=== PATIENT | female | born 1995 | race Two or more races ===

== ENCOUNTER 2024-05-10 21:30 | Observation (INO) | payer MEDICAID, SELFPAY ==
[2024-05-10 21:32] VITALS: BP 127/90; PULSE 134; RESP 18; TEMP 36.2; O2SAT 98; BMI 21.9
[2024-05-10 22:08] LABS: Bacteria 0 SEEN /hpf (None Seen); Mucous, Urine 0 SEEN /hpf (<or=2+); Red Blood Cells-Urine 0 SEEN /hpf (0-5); Squamous Epithelial Cells - UA 0 SEEN /hpf (5-10); White Blood Cells 0 SEEN /hpf (0-5)
[2024-05-10 22:09] LABS: Color, Urine Yellow (Yellow); Glucose, Dipstick Normal (Normal); Ketone-Dipstick Negative (Negative); Leukocyte Esterase-Dipstick Negative /ul (Negative); Nitrite-Dipstick Negative (Negative); Occult Blood-Urine Negative /ul (Negative); Protein-Dipstick Negative (Negative); Specific Gravity, Urine 1.015 (1.002-1.030); Urine Bilirubin Dipstick Negative (Negative); Urine Clarity Clear (Clear); Urine Urobilinogen Normal (Normal)
[2024-05-10 22:13] LABS: Internal QC Validated? YES +Cl - CLEAR BKGD; Pregnancy, Urine Negative Negative
[2024-05-10 23:00] VITALS: RESP 20
[2024-05-10 23:00] LABS: Amphetamine Urine VISTA NEGATIVE (<1000 ng/mL); Barbiturate Urine VISTA NEGATIVE (< 200 ng/mL); Benzodiazepine Urine VISTA NEGATIVE (< 200 ng/mL); Cocaine Urine VISTA POSITIVE (< 300 ng/mL); Ecstacy Urine VISTA NEGATIVE (< 500 ng/mL); Methadone Urine VISTA NEGATIVE (< 300 ng/mL); PCP Urine VISTA NEGATIVE (< 25 ng/mL); THC Urine VISTA NEGATIVE (< 50 ng/mL); Vista UDS pH Range 5
[2024-05-11] VITALS (9 sets, daily range): BP systolic 98–122; BP diastolic 57–85; PULSE 75–100; RESP 14–16; TEMP 36.3–37; O2SAT 95–100; BMI 21.9
[2024-05-11 00:58] LABS: Alcohol, Blood (Medical)-Serum < 3.0 mg/dL
[2024-05-11 01:01] LABS: Anion Gap 6 (5-15); BUN 11 mg/dL (7-18); BUN/Creat Ratio 16.3 RATIO (10-20); Calcium,Total 9.3 mg/dL (8.5-10.1); Chloride 106 mmol/L (98-107); Creatinine, Serum 0.68 mg/dL (0.55-1.02); EST Glomerular Filtration Rate 110 mL/min (>60); Est Glom Filt Rate - Afr Amer 133 mL/min (>60); Estimated Creatinine Clearance 119.78 ml/min; Glucose 101 mg/dL (74-106); Sodium Level 139 mmol/L (136-145)
[2024-05-11 01:10] LABS: Absolute Lymphocyte Count 3.06 X10^3/uL (0.83-4.51); Absolute Neutrophil Count 3.8 X10^3/uL (2.0-7.7); Basophil# 0.09 X10^3/uL; Basophil% 1.1 % (0-1); Eosinophils% 4.9 % (0-5); Hematocrit 40.2 % (37-47); Hemoglobin 13.9 g/dL (12.0-15.0); Lymphocyte # 3.06 X10^3/ul (0.83-4.51); Lymphocyte % 37.8 % (19-41); Mean Corp Hgb Conc 34.6 g/dL (32-36); Mean Corpuscular Hgb 28.8 pg (27.0-32.0); Mean Corpuscular Volume 83.4 fL (81-99); Mean Platelet Vol. 10.9 fl (6.2-12.0); Monocyte% 8.6 % (0-10); NRBC Flagged by Analyzer 0 % (0-5); Neutrophil # 3.84 X10^3/uL (2.7-7.7); Neutrophil % 47.5 % (47-70); Platelet Count 263 K/mm3 (150-450); RBC Distribution Width CV 12.5 % (11.6-14.6); RBC Distribution Width SD 38.2 fl (35.1-43.9); Red Blood Count 4.82 M/mm3 (4.2-5.4); White Blood Count 8.1 K/mm3 (4.4-11.0)
--- NOTE | 2024-05-11 01:20 | EX.ED.DYSGE1 ---
HPI History of Present Illness Chief Complaint: Substance Abuse Informant: patient Narrative Narrative: Patient is a 28-year-old female with history of PTSD and depression who also reports that she self medicates with cocaine and fentanyl. She states that she typically smokes the illicit drugs. She reports that she went through detox/rehab roughly a month ago and was clean for just a week or so before she began using. She states that she would typically smoke 1 to 2 mg of fentanyl per day. She states her last use of fentanyl and cocaine were 1 hour prior to arrival. She denies any homicidal or suicidal ideation but with desire for detoxification she presents for evaluation [facility] Medical History (Updated 05/11/24 @ 03:[address] Ranjith Pugh, DO) Cocaine abuse Fentanyl use disorder, mild, abuse Marijuana abuse PTSD (post-traumatic stress disorder) Depression Home Medications ?Medication ?Instructions ?Recorded ?Last Taken ?Type NK 05/11/24 Unknown History Allergy/AdvReac Type Severity Reaction Status Date / Time No Known Allergies Allergy Verified 05/10/24 21:31 Family History no significant family his Surgical History Hx of tubal ligation Hx of section Social History Smoking Status: Current every day smoker tobacco type: cigarettes ROS ROS ED Constitutional Constitutional ED: Denies chills or fever(s) Eyes Eyes: Denies blurry vision or change in vision ENT ENT ED: Denies sore throat Cardiovascular Cardiovascular: Denies chest pain, palpitations or racing heartbeat Respiratory/Chest Respiratory/Chest: Denies cough or dyspnea Gastrointestinal Gastrointestinal: Denies abdominal pain, diarrhea, nausea or vomiting Genitourinary Genitourinary ED: Denies dysuria Musculoskeletal Musculoskeletal: Denies myalgias Integumentary Denies rash Neurologic Neurologic: Denies headache(s) Psychiatric Psychiatric: Reports depression and other Details: Positive drug abuse ; Denies suicidal ideation or suicidal thoughts Hematologic/Lymphatic Hematologic/Lymphatic: Denies easy bleeding or easy bruising EXAM Physical Exam Const Vital Signs: 05/10/24 21:32 05/10/24 23:00 05/11/24 00:00 Temperature 97.1 F L Temperature Source Temporal Pulse Rate 134 H 90 Respiratory Rate 18 20 H 16 Blood Pressure 127/90 H 122/85 H Blood Pressure Mean 102 97 Pulse Ox 98 97 Oxygen Delivery Method Room Air Room Air Room Air 05/11/24 01:00 05/11/24 01:20 Temperature 98.2 F Temperature Source Pulse Rate 80 80 Respiratory Rate 16 16 Blood Pressure 116/75 116/75 Blood Pressure Mean 88 88 Pulse Ox 95 95 Oxygen Delivery Method Room Air Positive well nourished and well developed General Appearance ED: well developed; Negative for pallor HEENT HEENT Narrative: Normocephalic atraumatic No signs of infection in the posterior pharynx Eyes EOMs intact bilaterally Eyes Narrative: Pupils are pinpoint consistent with opioid use General Eye ED: Negative for scleral icterus Neck supple Neck Narrative: No nuchal rigidity or meningeal signs Resp normal respiratory effort and clear to auscultation bilaterally Cardio regular rate and regular rhythm Rate: other Other Details: Heart is regular rate and rhythm without murmurs rubs or gallops Radial and carotid pulses are equal and symmetric GI non-tender, non-distended and no masses Auscultation: hypoactive bowel sounds Palpation: soft Extremity normal to inspection Extremity Narrative: No asymmetric edema no pitting edema negative Homans' sign bilaterally Occasional track osullivan in the bilateral arms consistent with recent IV injection. No secondary findings of cellulitis or abscess no splinter hemorrhages noted Neuro oriented x3, CN's II-XII intact bilaterally and no sensory deficits noted Sensorium / Orientation: alert Motor Exam: strength 5/5 throughout Psych mental status grossly normal Psych Narrative: No homicidal or suicidal ideation Skin no rashes or lesions noted General Skin Exam: Negative for jaundice or pallor MDM MDM MDM Narrative Medical decision making narrative: Patient presented to the ER tachycardic but recently did cocaine. We informed her that we do not detox for this but based on her recurrent fentanyl use she would qualify. The patient does express desire for detox from the opioid and is agreeable to the terms of being placed in detox/rehab. In order to ensure that there was no findings of acute kidney injury electrolyte abnormality or potential infection a medical screening exam and basic blood work were obtained. Labs revealed no clinically significant findings and her exam showed no signs of secondary infection such as cellulitis or abscess and her exam did not suggest endocarditis. She was not having chest pain or shortness of breath and had low concern for cocaine induced coronary vasospasm and therefore there was no need for a EKG. as the patient is requesting detox and now is medically cleared medicine was contacted and they do agree to accept the patient for continued care History & Record Review Discussion w/independent historian: Patient Lab Data Attestation: I reviewed the patient's lab results. Labs: Laboratory Results - last 24 hr 05/10/24 05/11/24 22:00 00:37 WBC 8.1 RBC 4.82 Hgb 13.9 Hct 40.2 MCV 83.4 MCH 28.8 MCHC 34.6 RDW Std Deviation 38.2 RDW Coeff of Nikki 12.5 Plt Count 263 MPV 10.9 Immature Gran % (Auto) 0.100 Neut % (Auto) 47.5 Lymph % (Auto) 37.8 [place] % (Auto) 8.6 Eos % (Auto) 4.9 Baso % (Auto) 1.1 H Absolute Neuts (auto) 3.8 Absolute Lymphs (auto) 3.06 Nucleated RBC % 0 PT 13.2 INR 1.0 Sodium 139 Potassium 4.0 Chloride 106 Carbon Dioxide 27.0 Anion Gap 6 BUN 11 Creatinine 0.68 Estim Creat Clear Calc 119.78 Est GFR (MDRD) Af Amer 133 Est GFR (MDRD) Non-Af 110 BUN/Creatinine Ratio 16.3 Glucose 101 Calcium 9.3 Total Bilirubin 0.40 Direct Bilirubin 0.15 AST 31 ALT 52 Alkaline Phosphatase 49 Total Protein 7.8 Albumin 3.9 Globulin 3.9 Urine Color Yellow Urine Clarity Clear Urine pH 6.0 Ur Specific [place] 1.015 Urine Protein Negative Urine Glucose (UA) Normal Urine Ketones Negative Urine Occult Blood Negative Urine Nitrite Negative Urine Bilirubin Negative Urine Urobilinogen Normal Ur Leukocyte Esterase Negative Urine RBC 0 SEEN Urine WBC 0 SEEN Ur Squamous Epith Cells 0 SEEN Urine Bacteria 0 SEEN Urine Mucus 0 SEEN Urine Test Negative Urine Opiates Screen NEGATIVE Urine Methadone Screen NEGATIVE Ur Barbiturates Screen NEGATIVE Ur Phencyclidine Scrn NEGATIVE Ur Amphetamines Screen NEGATIVE MDMA (Ecstasy) Screen NEGATIVE U Benzodiazepines Scrn NEGATIVE Urine Cocaine Screen POSITIVE H U Cannabinoids Screen NEGATIVE Ur Drug Screen Comment Ethyl Alcohol < 3.0 Management Discussion w/another healthcare provider: Hospitalist Discharge Plan Dx/Rx/DC Orders Clinical Impression: Polysubstance abuse, Desire for detoxification, Depression Disposition Disposition: Acute Care Hospital [facility] Discharge Date/Time: 05/11/24 02:14
--- NOTE | 2024-05-11 01:29 | PCM.HP.STD ---
HPI - General General Date of Admission: 05/11/24 Date of Service: 05/11/24 Chief Complaint: Acute opioid withdrawal syndrome HPI Narrative KAILYN CRENSHAW, is a 28 F came to ED for opioid detox. Patient states that she usually smokes fentanyl but has used IV fentanyl only twice. She is using 1 to 2 g fentanyl. She also smokes crack cocaine and marijuana/weeds. She has anxiety depression and PTSD. She denies suicidal or homicidal, hallucinations, delusion or illusion. She is having mild symptoms of anxiety, restlessness, hot and cold since but denies diarrhea abdominal pain. [facility] Medical History Cocaine abuse Fentanyl use disorder, mild, abuse Marijuana abuse PTSD (post-traumatic stress disorder) Depression Home Medications ?Medication ?Instructions ?Recorded ?Last Taken ?Type NK 05/11/24 Unknown History Allergy/AdvReac Type Severity Reaction Status Date / Time No Known Allergies Allergy Verified 05/10/24 21:31 Family History no significant family his Surgical History Hx of tubal ligation Hx of section Social History Smoking Status: Current every day smoker tobacco type: cigarettes ROS ROS Narrative Constitutional: Reports fatigue and weakness. No fever. HEENT: Reports systems reviewed and no addt'l complaints, except as documented Respiratory/Chest: No acute shortness of breath or respiratory distress or wheezing. CVS: No chest pain. Denies CAD Gastrointestinal: Denies coffee ground emesis, hematemesis or vomiting Genitourinary: Denies burning urination or new urinary tract symptoms Musculoskeletal: Denies acute joint pain or limited range of motion. No acute injury Neurologic: Denies seizure-like symptoms. skin: No ulcer. No rash Endocrinology: Reports systems reviewed and no addt'l complaints, except as documented Hematologic/Lymphatic: Reports systems reviewed and no addt'l complaints, except as documented Rest 14 ROS are negative except as mentioned in HPI Vital Signs Vital Signs Vital Signs: 05/10/24 21:32 05/10/24 23:00 05/11/24 00:00 Temperature 97.1 F L Temperature Source Temporal Pulse Rate 134 H 90 Respiratory Rate 18 20 H 16 Blood Pressure 127/90 H 122/85 H Blood Pressure Mean 102 97 Pulse Ox 98 97 Oxygen Delivery Method Room Air Room Air Room Air 05/11/24 01:00 05/11/24 01:20 Temperature 98.2 F Temperature Source Pulse Rate 80 80 Respiratory Rate 16 16 Blood Pressure 116/75 116/75 Blood Pressure Mean 88 88 Pulse Ox 95 95 Oxygen Delivery Method Room Air Weight Weight: 140 lb Body Mass Index (BMI) 21.9 Physical Exam Narrative General: Alert, Oriented x3, Cooperative HEENT: Atraumatic, PERRLA, EOMI, Normocephalic Oral: Oral mucosa moist. No Gingival or Mucosal Lesions/ Ulcerations Neck: Supple, No JVD, Negative Carotid Bruits Chest wall/Lungs: Air entry diminished in bilateral lung bases. No crepitation/rhonchi Cardiovascular: Regular rate, Regular Rhythm, Normal S1, Normal S2, No M/G/R Abdomen: Bowel Sounds Present, Soft, Non Tender, Non-Distended : No dysuria. No renal angle tenderness. No suprapubic tenderness. Extremities: No edema, Capillary Refill Less than 3 Seconds Skin: No rashes, No breakdown Musculoskeletal: No Tenderness to Palpation of Joints or Extremities Neurological: Cranial nerves II-XII grossly intact, DTR 2+/4. No acute focal neurological deficit. Psych/Mental Status: Flat affect, anxiety, depression and PTSD Results Lab / Micro Data 05/11/24 00:37 05/11/24 00:37 Labs: Laboratory Results - last 24 hr 05/10/24 22:00: Urine Color Yellow, Urine Clarity Clear, Urine pH 6.0, Ur Specific [place] 1.015, Urine Protein Negative, Urine Glucose (UA) Normal, Urine Ketones Negative, Urine Occult Blood Negative, Urine Nitrite Negative, Urine Bilirubin Negative, Urine Urobilinogen Normal, Ur Leukocyte Esterase Negative, Urine RBC 0 SEEN, Urine WBC 0 SEEN, Ur Squamous Epith Cells 0 SEEN, Urine Bacteria 0 SEEN, Urine Mucus 0 SEEN, Urine Test Negative, Urine Opiates Screen NEGATIVE, Urine Methadone Screen NEGATIVE, Ur Barbiturates Screen NEGATIVE, Ur Phencyclidine Scrn NEGATIVE, Ur Amphetamines Screen NEGATIVE, MDMA (Ecstasy) Screen NEGATIVE, U Benzodiazepines Scrn NEGATIVE, Urine Cocaine Screen POSITIVE H, U Cannabinoids Screen NEGATIVE, Ur Drug Screen Comment 05/11/24 00:37: WBC 8.1, RBC 4.82, Hgb 13.9, Hct 40.2, MCV 83.4, MCH 28.8, MCHC 34.6, RDW Std Deviation 38.2, RDW Coeff of Nikki 12.5, Plt Count 263, MPV 10.9, Immature Gran % (Auto) 0.100, Neut % (Auto) 47.5, Lymph % (Auto) 37.8, [place] % (Auto) 8.6, Eos % (Auto) 4.9, Baso % (Auto) 1.1 H, Absolute Neuts (auto) 3.8, Absolute Lymphs (auto) 3.06, Nucleated RBC % 0, Sodium 139, Potassium 4.0, Chloride 106, Carbon Dioxide 27.0, Anion Gap 6, BUN 11, Creatinine 0.68, Estim Creat Clear Calc 119.78, Est GFR (MDRD) Af Amer 133, Est GFR (MDRD) Non-Af 110, BUN/Creatinine Ratio 16.3, Glucose 101, Calcium 9.3, Ethyl Alcohol < 3.0 Assessment & Plan Assessment/Plan (1) Polysubstance abuse: (2) Acute opioid withdrawal: PLAN: Plan This is 28 old female is being admitted for acute opioid withdrawal syndrome. 1. Acute opioid withdrawal syndrome with history of chronic opioid use disorder: Patient is admitted on Med[facility] floor. The patient is started on buprenorphine along with other adjunctive medications as needed for medical stabilization as per order set of opioid withdrawal syndrome.Patient also on trazodone, hydroxyzine, gabapentin as needed ordered. Advised quitting opioid use. 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 Started opioid use at the age of 18, intermittently, quit in the left after 3 months. 2. Polysubstance use: Patient smokes crack cocaine, marijuana. Advised quitting 3. Chronic nicotine use/cigarette smoking: Patient smokes a pack per day, started at the age of 14. 4. Chronic hepatitis C: Patient never been evaluated or treated for hepatitis C. Advised to follow-up in GI clinic. 5. Anxiety, depression and PTSD: Her home medication does not show any antidepressant medication. Due to prophylaxis: Low risk. Early ambulation encouraged Laboratory Results 05/10/24 22:00: Urine Color Yellow, Urine Clarity Clear, Urine pH 6.0, Ur Specific [place] 1.015, Urine Protein Negative, Urine Glucose (UA) Normal, Urine Ketones Negative, Urine Occult Blood Negative, Urine Nitrite Negative, Urine Bilirubin Negative, Urine Urobilinogen Normal, Ur Leukocyte Esterase Negative, Urine RBC 0 SEEN, Urine WBC 0 SEEN, Ur Squamous Epith Cells 0 SEEN, Urine Bacteria 0 SEEN, Urine Mucus 0 SEEN, Urine Test Negative, Urine Opiates Screen NEGATIVE, Urine Methadone Screen NEGATIVE, Ur Barbiturates Screen NEGATIVE, Ur Phencyclidine Scrn NEGATIVE, Ur Amphetamines Screen NEGATIVE, MDMA (Ecstasy) Screen NEGATIVE, U Benzodiazepines Scrn NEGATIVE, Urine Cocaine Screen POSITIVE H, U Cannabinoids Screen NEGATIVE, Ur Drug Screen Comment 05/11/24 00:37: WBC 8.1, RBC 4.82, Hgb 13.9, Hct 40.2, MCV 83.4, MCH 28.8, MCHC 34.6, RDW Std Deviation 38.2, RDW Coeff of Nikki 12.5, Plt Count 263, MPV 10.9, Immature Gran % (Auto) 0.100, Neut % (Auto) 47.5, Lymph % (Auto) 37.8, [place] % (Auto) 8.6, Eos % (Auto) 4.9, Baso % (Auto) 1.1 H, Absolute Neuts (auto) 3.8, Absolute Lymphs (auto) 3.06, Nucleated RBC % 0, Sodium 139, Potassium 4.0, Chloride 106, Carbon Dioxide 27.0, Anion Gap 6, BUN 11, Creatinine 0.68, Estim Creat Clear Calc 119.78, Est GFR (MDRD) Af Amer 133, Est GFR (MDRD) Non-Af 110, BUN/Creatinine Ratio 16.3, Glucose 101, Calcium 9.3, Ethyl Alcohol < 3.0 Charges/Coding Visit Charges Inpatient E&M: 37947 Init Hosp L3
[2024-05-11 01:46] LABS: Prothrombin Time (Protime)PT. 13.2 SECONDS (11.7-14.9)
[2024-05-11 01:55] LABS: AST(SGOT) 31 U/L (15-37); Alanine Aminotransfer ALT/SGPT 52 U/L (13-56); Albumin, Serum 3.9 g/dL (3.2-5.0); Alkaline Phosphatase 49 U/L (45-117); Bilirubin, Direct 0.15 mg/dL (0.00-0.30); Globulin 3.9 g/dL (2.2-4.2); Protein, Total 7.8 g/dL (6.4-8.2)
[2024-05-11] MEDS: Dicyclomine 10 MG Capsule 20 MG PO ×2 (06:58→21:03)
[2024-05-11] MEDS: Ibuprofen 600 MG Tablet PO ×2 (06:58→18:18)
--- NOTE | 2024-05-11 09:23 | PCM.HOSP.N ---
Hospitalist Note Patient was seen and examined briefly today, she appears to be in no distress at this time, she does not complain of any anxiety or tremors. Patient will probably be seen by addiction social worker health services today.
[2024-05-11] MEDS: FLU VACC 2024-25(6MOS UP)/PF 45 MCG/0.5 ML SYRINGE IM (14:15)
[2024-05-11] MEDS: hydrOXYzine PAM 25 MG Capsule 50 MG PO (18:18)
[2024-05-11] MEDS: Gabapentin 300 MG Capsule PO (21:03)
[2024-05-11] MEDS: traZODone 100 MG Tablet PO (21:03)
[2024-05-11] MEDS: Acetaminophen 500 MG Tablet PO (21:03)
[2024-05-12 02:51] VITALS: BP 92/67; PULSE 74; RESP 16; TEMP 36.4; O2SAT 100
[2024-05-12] MEDS: Acetaminophen 500 MG Tablet PO ×2 (02:56→19:44)
[2024-05-12 09:00] VITALS: BP 98/63; PULSE 97; RESP 16; TEMP 36.6; O2SAT 98
[2024-05-12] MEDS: Dicyclomine 10 MG Capsule 20 MG PO (11:24)
[2024-05-12] MEDS: hydrOXYzine PAM 25 MG Capsule 50 MG PO ×2 (11:24→19:44)
--- NOTE | 2024-05-12 13:22 | ADDICTION ---
Met w/Pt to complete RAMP assessments. Pt reports that she has been using for quite some time. She reports to previously being on Suboxone. She reports that she was referred hear by Magdalena when she went to get on Suboxone. She reported that they told her we could start her Suboxone. This worker explained that we use Subutex to help with W/d symptoms through a taper protocol but we do not send pt's home with Subutex. Clinician also explained to pt if her plan was to continue suboxone post d/c, she did not need to detox, Magdalena could've just administered the suboxone once she began the w/d process.
[2024-05-12 15:00] VITALS: BP 110/68; PULSE 82; RESP 16; TEMP 36.4; O2SAT 99
--- NOTE | 2024-05-12 16:27 | PN.HOSP_ITS ---
Reason for Visit Reason for Visit: Diagnoses Opioid use, unspecified with withdrawal (05/11/24) Other psychoactive substance abuse, uncomplicated (05/11/24) Subjective Subjective Patient was seen and examined today, she appears comfortable, she is not experiencing any muscle pains, nausea, or bodyaches. Objective Data Objective Data Vital Signs: Vital Signs Temp Pulse Resp BP Pulse Ox O2 Del Method 97.6 F L 74 16 92/67 100 Room Air 05/12/24 02:51 05/12/24 02:51 05/12/24 02:51 05/12/24 02:51 05/12/24 02:51 05/12/24 02:51 Oxygen Delivery Method Room Air Weight: 63.5 kg Body Mass Index (BMI) 21.9 Intake & Output: Intake and Output for Last 24 Hours 05/10/24 05/11/24 05/12/24 23:59 23:59 23:59 Intake Total 440 / 740 500 / 500 Balance 440 / 740 500 / 500 Lab / Micro Data 05/11/24 00:37 05/11/24 00:37 Physical Exam Const alert, oriented x3, no apparent distress and healthy appearing General Appearance: cooperative, well kempt and well developed Orientation / Consciousness: awake, oriented to person, oriented to place and oriented to time HEENT normocephalic, head/scalp atraumatic and moist oral mucous membranes Eyes PERRL, EOMs intact bilaterally and conjunctivae normal Neck supple, no JVD, thyroid normal and no carotid bruits General: trachea midline Resp normal respiratory effort, no retractions, no use of accessory muscles and clear to auscultation bilaterally Auscultation: Negative for rales, rhonchi or wheezes Cardio regular rate, regular rhythm, S1 normal heart sound, S2 normal heart sound, no murmurs, no rub and no gallops GI normal to inspection, nondistended, normoactive bowel sounds, soft to palpation, non-tender and non-distended Extremity no clubbing, cyanosis or edema Skin no rashes or lesions noted General Skin Exam: no breakdown Neuro oriented x3, CN's II-XII intact bilaterally, no focal motor deficits and no sensory deficits noted Sensorium / Orientation: awake and alert Speech: speech normal Psych affect normal Assessment & Plan Assessment/Plan (1) Acute opioid withdrawal: PLAN: Plan 1. Acute opiate withdrawal-according to addiction social services specialist, the patient plans to go on Suboxone which is what she was on previously when she is discharged from the hospital. There is no documentation of what the plan is for this patient as far as follow-up when she leaves here or when the expected date of discharge would be. #2 polysubstance use disorder-complicates care, management, recovery, and prognosis Total clinical time spent by myself addressing the patient's medical issues, reviewing all of her data, and collaborating with patient's care team: 25 minutes Charges/Coding Visit Charges Inpatient E&M: 35002 Subs Hosp L2
[2024-05-12 19:40] VITALS: BP 94/63; PULSE 97; RESP 16; TEMP 37.1; O2SAT 98
[2024-05-12] MEDS: traZODone 100 MG Tablet PO (19:44)
[2024-05-13 03:06] VITALS: BP 111/78; PULSE 94; RESP 16; TEMP 36.6; O2SAT 98
--- NOTE | 2024-05-13 08:31 | DCINST_ITS ---
Discharge Instructions Diet Discharge Diet: No restrictions Activity Discharge Activity: Return to Normal Activity Weight Bearing Status: Full weight bearing Follow Up Care Test Results: Test results from this visit will be discussed in further detail at your follow- up appointment, if applicable. Discharge Plan Admission Admit Date/Time: 05/11/24 01:27 Primary Reason for Your Visit: substance abuse disorder Attending Provider: Ellis Moses Primary Care Provider: Care Physician,No Primary Consulting Providers: Lance Garcia Instructions Additional Instructions / Restrictions: Follow up with outpatient detox facility for any prescribed meds Discharge Orders/Prescriptions Prescriptions: No Action NK Referrals / Follow Up: Care Physician,No Primary [Primary Care Provider] - Disposition Disposition (needs filled in before D/C Order can be placed): Home, Self Care
--- NOTE | 2024-05-13 08:33 | PCM.DC.SUM ---
Providers Date of Admission: 05/11/24 Date of Discharge: 05/13/24 Primary Care Physician: No Primary Care Phys Reason For Visit: ACUTE OPIOID WITHDRAWAL SYNDROME Diagnosis Discharge Diagnosis (1) Acute opioid withdrawal: Status: Acute Code(s): F11.93 - Opioid use, unspecified with withdrawal Plan 1. Acute opiate withdrawal-according to addiction social services counselor, the patient plans to go on Suboxone which is what she was on previously when she is discharged from the hospital. There is no documentation of what the plan is for this patient as far as follow-up when she leaves here or when the expected date of discharge would be. #2 polysubstance use disorder-complicates care, management, recovery, and prognosis Total clinical time spent by myself addressing the patient's medical issues, reviewing all of her data, and collaborating with patient's care team: 25 minutes Medications at Discharge Home Medications NK 05/11/24 Hospital Course Operations None Procedures None Summary of Care Provided Minutes Spent on Discharge: 30 Hospital Course: This 28-year-old black female was sent to the emergency room at [facility] by [facility] for admission to the hospital here for opiate detox services. Patient was having no symptoms of opiate withdrawal on admission, labs were obtained and her toxicology screen was positive for opiates and cocaine. Patient was admitted to [place] [address], during her hospital stay she did not require Suboxone as she had no symptoms of opiate detox. She was seen in consultation by addiction social services counselor who recommended that she follow-up with [facility] to obtain a prescription for Subutex. On 05/13/2024, patient was seen and examined: On examination she appeared in good health and spirits, she does not appear to be in any distress. Vital signs as documented. Skin warm and dry and without overt rashes. Neck without JVD, thyroid appears normal, trachea is midline, neck is supple. Lungs clear, normal air movement was noted. Heart exam notable for regular rhythm, normal sounds and absence of murmurs, rubs or gallops. Abdomen unremarkable and without evidence of organomegaly, masses, or abdominal aortic enlargement, bowel sounds are present in all 4 quadrants, no abdominal tenderness was noted. Extremities nonedematous, no cyanosis was noted, no clubbing was noted. Neuro: Cranial nerves II through XII are grossly intact, no focal motor deficits were noted, sensation to light touch and pinprick is intact, motor exam 5/5 throughout. Psych: Patient is alert and oriented x3, she does not appear anxious or depressed, she does not appear agitated. Patient was discharged home in stable condition on 05/13/2024. Weight / BMI Weight Weight: 63.5 kg Body Mass Index (BMI) 21.9 ABG / Lab / Microbiology Data 05/11/24 00:37 05/11/24 00:37 D/C Instructions Discharge Diet: No restrictions Weight Bearing Status: Full weight bearing Meaningful Use Info Meaningful Use Meaningful Use Diagnoses (Choose all that apply): None applicable Ischemic Stroke Statin Dosing Therapy Reference: STATIN DOSE THERAPY REFERENCE: * Patients > 75 years receive moderate or high dose statin therapy. * Patients 75 years or YOUNGER should receive HIGH intensity statin dose unless contraindicated. You will be required to document reason for non-treatment if statin daily dose does not meet guidelines. HIGH DOSE STATIN THERAPY DAILY Atorvastatin > than or = to 40 mg Rosuvastatin > than or = to 20 mg Amlodipine + Atorvastatin > than or = to 2.5/40 mg Ezetimibe + Simvastatin 10/80 mg Simvastatin 80mg Discharge Plan Admission Admit Date/Time: 05/11/24 01:27 Primary Reason for Your Visit: substance abuse disorder Attending Provider: Ellis Moses Primary Care Provider: Care Physician,No Primary Consulting Providers: Lance Garcia Instructions Additional Instructions / Restrictions: Follow up with outpatient detox facility for any prescribed meds Discharge Orders/Prescriptions Prescriptions: No Action NK Referrals / Follow Up: Care Physician,No Primary [Primary Care Provider] - Disposition Disposition (needs filled in before D/C Order can be placed): Home, Self Care Charges/Coding Visit Charges Inpatient E&M: 30503 Disch Hosp
[2024-05-13 09:08] VITALS: BP 95/54; PULSE 100; RESP 18; TEMP 36.6; O2SAT 99
[2024-05-13 14:02] VITALS: BP 108/73; PULSE 103; RESP 16; TEMP 36.8; O2SAT 99
== END 2024-05-13 14:32 | disposition home or self-care (01) | DRG 773 ==
LOC: ED 05-11 01:32 → MS3 05-11 03:50
PROVIDERS: Admitting Provider Internal Medicine; Emergency Provider Emergency Medicine; Visit Provider Internal Medicine
DX: F11.13 Opioid abuse with withdrawal (principal); F14.10 Cocaine abuse, uncomplicated; B18.2 Chronic viral hepatitis C; F14.90 Cocaine use, unspecified, uncomplicated; F17.210 Nicotine dependence, cigarettes, uncomplicated; F43.10 Post-traumatic stress disorder, unspecified; Z23 Encounter for immunization; F12.10 Cannabis abuse, uncomplicated
CPT/HCPCS: 80048; 80076; 80307; 81001; 81025; 82077; 85025; 85610; 90656; 99221; 99283; 99406; G0378